=== PATIENT | female | born 1980 | race Caucasian/White ===

== ENCOUNTER 2022-09-18 14:00 | Emergency (ER) | payer OTHER ==
[~2022-09-18] VITALS: Ht 160 cm; Wt 67.1 kg
[2022-09-18] MEDS ORDERED: KETOROLAC TROMETHAMINE 15 MG INJ ONE (14:14)
[2022-09-18] MEDS ORDERED: KETOROLAC TROMETHAMINE 15 MG INJ IM ONE (14:15)
[2022-09-18] MEDS ORDERED: WELLBUTRIN (14:16)
[2022-09-18] MEDS ORDERED: VALTREX (14:26)
[2022-09-18] MEDS ORDERED: ACETAMINOPHEN ES 500 MG TABLET ONE (15:35)
[2022-09-18] MEDS ORDERED: ACETAMINOPHEN ES 500 MG TABLET PO ONE (15:45)
[2022-09-18] MEDS ORDERED: BENZ-13 PO (16:07)
[2022-09-18] MEDS ORDERED: IBUP-1955 PO (16:07)
[2022-09-18 16:48] VITALS: BP 116/68
== END 2022-09-18 16:48 | disposition home or self-care (01) ==
LOC: ER 14:00
DX: U07.1 COVID-19 (principal); Z88.1 Allergy status to other antibiotic agents; Z79.899 Other long term (current) drug therapy
CPT/HCPCS: 99283; 96372; J1885; A4663; A9150